=== PATIENT | female | born 1940 | race Caucasian/White ===

== ENCOUNTER 2016-12-05 09:35 | Emergency (ER) | payer MEDICARE, MEDICAID ==
[~2016-12-05] VITALS: Ht 154.9 cm; Wt 72.7 kg
[~2016-12-05 09:35] MED LIST: ASPI81TA3 PO; CALC-771 PO; FISH1CAP15 PO; GINK30CA PO; GLUC-125 PO; LISI1TAB3 PO; LOP600 PO; MELA1TAB21 PO; MULT-892 PO; UBID1CAP52 PO
[2016-12-05 09:39] VITALS: BP 171/71; PULSE 59; RESP 10; O2SAT 99
--- NOTE | 2016-12-05 09:47 | ED.REPORT ---
HPI-Trauma Minor / Fall Date of Service Dec 05, 2016 ED Provider: Papa Sahni MD The patient is a 76 year old female with history of vascular dementia, who was brought to the emergency department by her grandson for a recent head injury. The patient fell 2 days ago while getting out of bed and hit the left side of her face and head. She does not believe she lost consciousness. She denies chest pain, shortness of breath, palpitations or dizziness. She denies any other injuries. Since the fall she has been more tired and appears to be weak and shaky. At this time she complains of very mild head pain that is worse if she touches it. She denies difficulty speaking, difficulty swallowing, visual changes, numbness, focal weakness or vomiting. She takes 81 mg aspirin daily. Nursing Notes Stated Complaint: FALL Chief Complaint: Multiple Trauma/Fall Nursing Notes Reviewed: Yes Allergies: Coded Allergies: amlodipine (Verified Adverse Reaction, Intermediate, 07/31/12) severe, debilitating joint pain atenolol (Verified Adverse Reaction, Intermediate, 07/31/12) when she stopped atenolol, her asthma sx and SOB went away, as did her dx of CHF lorazepam (Verified Adverse Reaction, Intermediate, HYPOTENSION, 07/31/12) Scheduled Aspirin-Expunged Drug, Do Not Renew! (Aspirin-Expunged Drug, Do Not Renew!) 81 Mg Tab.chew 81 MG PO DAILY Calcium Carbonate/Mag Oxide/Zn (Uukgnuc-Qaunxiuha-Olkn Caplet) 1 Each Tablet 1, 200 MG PO DAILY Fish Oil/Dha/Epa-Expunged Drug, Do Not Renew! (Fish Oil 1,200 Mg-Expunged Drug, Do Not Renew) 1 Each Capsule 1 EACH PO DAILY Gemfibrozil-Expunged Drug, Do Not Renew! (Lopid-Expunged Drug, Do Not Renew!) 600 Mg Tablet 300 MG PO BID Ginkgo Biloba-Expunged Drug, Do Not Renew! (Ginkgo Biloba-Expunged Drug, Do Not Renew!) 30 Mg Capsule 60 MG PO DAILY Gluc/Reed-Msm#3/Jesse/Bosw/Bor (Glucosamine Chondroitin Sftgl) 1 Each Capsule 1 EACH PO DAILY Lisin/HCTZ-Expunged, Do Not Renew! (Lisin/HCTZ 10/12.5-Expunged, Do Not Renew!) 1 Tab Tablet 1 TAB PO DAILY MELATONIN/PYRIDOXINE-Expunged Drug, Do Not Re (MELATONIN-Expunged Drug, Do Not Renew!) 1 Each Tab.mphase 1 EACH PO HS Multivitamin (Daily Value) 1 Each Tablet 1 EACH PO DAILY Ubidecarenone/Vit E Acetate (Co Q-10 100 Mg Softgel) 1 Each Capsule 2 EACH PO DAILY General Time Seen by MD: 09:39 Chief Complaint Fall, Head injury Hx Obtained From: Patient, Other family... (Grandson) Arrived By: Walk-in Onset Occurred: 2 days ago Symptom Duration: Since onset Caused by: Fall on ground Context: Occurred at: Home injury Location: Face Head Quality: Painful Severity: Current: Mild Severity: Maximum: Moderate Recent Healthcare: No recent doctor visit, No recent hospitalization Similar Sx Previous: No Past Medical History Past Medical History Vascular dementia Family History Noncontributory Social History Lives with her grandson Other Social History: Good social support, Local resident Ambulatory Status Independent Review of Systems Constitutional: Reports: Fatigue, Weakness - generalized Respiratory: Denies: Shortness of breath Neurologic: Reports: Headache, Shaking, Weakness, Denies: Dizziness, Focal weakness, Numbness, Slurred speech, Syncope, Unable to speak, Vision change Complete sys rev & neg: except as marked. Cardiovascular: Denies: Chest pain, Palpitations GI: Denies: Vomiting Physical Exam Initial Vital Signs Vital Signs (First) Date Time Temp Pulse Resp B/P Pulse Ox O2 Delivery O2 Flow Rate FiO2 12/05/16 09:39 36.9 59 10 171/71 99 Room Air Initial VS: Reviewed Respiratory: Breath sounds normal, Clear to auscultation, No respiratory distress Cardiovascular: Regular rate & rhythm, Heart sounds normal, Intact distal pulses Abdomen / GI: Soft, Non-tender, No guarding, No rebound, No distention Lymphatic: No lymphadenopathy Extremities: Vascular intact, Neuro intact, No swelling, No tenderness Skin: Warm, Dry, No cyanosis Psychiatric: Mood/affect normal, Behavior normal, Normal thought content General/Constitutional: Awake, Alert, No acute distress, Cooperative Neck: Atraumatic, Supple, Full range of motion, No swelling, Non-tender, No midline vertebral tend Head / Eyes: Normocephalic, PERRL, EOMI Contusion over her left forehead. No Pineda's sign. ENT: Atraumatic, Airway patent, Mucous membranes moist, Tympanic membs NL Trauma - ENT Specific: Negative: Hemotympanum L, Hemotympanum R Neurologic: Oriented X3, Speech NL, No motor deficits, No sensory deficits, CN II - XII intact, Cerebellar NL Interpretation & Diagnostics CT Head Interpretation IMPRESSION: 1. No CT evidence of acute intracranial pathology. 2. Previously noted mastoid fluid has resolved. Dictated by: Donald Lilly M.D. on 12/05/2016 at 11:02 Study: Head CT no contrast Interpretation / Wet Read by: Interpret - Radiologist Re-Eval/Medical Decision Med Decision/Clinical Course 76-year-old female not on anticoagulation visiting 2 days status post golf fall complaining of weakness and decreased level of consciousness per grandson. No focal neuro deficits. CT head no acute pathology. Likely concussion. Discharged with return precautions. Return precautions given. Re-Evaluation/Progress #1: Time of Eval: 09:55 Re-Evaluation/Progress Note: Discussed plan for head CT. Re-Evaluation/Progress #2: Time of Eval: 11:16 Re-Evaluation/Progress Note: Rechecked the patient. Discussed results, diagnosis, and plan for discharge. All questions were addressed. Counseled Regarding: Diagnosis, Need for follow-up, When/why to return to ED Discharge & Departure Impression: Primary Impression: Fall Encounter type: initial encounter Qualified Code: W19.XXXA - Unspecified fall, initial encounter Additional Impression: Head injury Encounter type: initial encounter Qualified Code: S09.90XA - Unspecified injury of head, initial encounter Disposition: Home Discharge Condition All VS Reviewed: Yes Condition: Stable Patient Instructions: Fall Prevention for Older Adults (ED), Head Injury (ED) Additional Instructions: Thank you for entrusting us with your care today. Your head CT today is reassuring. There are no signs of any fractures or bleeding. It would not be a normal if you experience a mild headache, ringing in your ears , dizziness, lightheadedness, blurred vision, and/or slightly increased agitation. As long as you fell well you can do any of your normal activities. Followup with your regular doctor next week for re-evaluation. Return to the emergency department for increased pain, vomiting, visual changes , numbness, weakness, speech changes, or any other new or concerning symptoms. Referrals: Sindi Matias (PCP) Scribe Attestation Portions of this note were transcribed by Ayla Nelson. I, Dr. Sahni personally performed the history, physical exam and medical decision-making; I reviewed and confirmed the accuracy of the information in the transcribed note. Signed by: Edi Herzog, 12/05/2016 at 1130. copies to: Sindi Matias Ben M MD Dec 05, 2016 09:47 Ayla Nelson Dec 05, 2016 09:54
--- NOTE | 2016-12-05 11:07 | DRSVH ---
PROCEDURE: CT BRAIN WITHOUT CONTRAST ([id number]) INDICATIONS: head trauma TECHNIQUE: Noncontrast 4.5 mm thick angled axial sections acquired from the foramen magnum to the vertex, with c oronal reformats. COMPARISON: [facility], brain MRI from 09/24/2016 FINDINGS: Image quality: Excellent. CSF spaces: Basal cisterns are patent. No extra-axial fluid collections. Ventricles are normal in size and shape. Brain: No midline shift. No intracranial masses or hemorrhage. Ball-white matter interface is norm al. Low-density in the subcortical and periventricular matter consistent with chronic benign ischemi c change. Skull and face: Calvarium and visualized facial bones are intact, without suspicious lesions. Sinuses: Visualized sinuses and mastoids are clear. IMPRESSION: 1. No CT evidence of acute intracranial pathology. 2. Previously noted mastoid fluid has resolved. Dictated by: Donald Lilly M.D. on 12/05/2016 at 11:02 Approved by: Donald Lilly M.D. on 12/05/2016 at 11:05
[2016-12-05 11:54] VITALS: BP 152/73; PULSE 51; RESP 17; O2SAT 95
== END 2016-12-05 11:55 | disposition home or self-care (01) ==
LOC: SED 09:35
DX: S00.83XA Contusion of other part of head, initial encounter (principal); W06.XXXA Fall from bed, initial encounter; Y93.89 Activity, other specified; Y99.8 Other external cause status; Y92.013 Bedroom of single-family (private) house as the place of occurrence of the external cause; F01.50 Vascular dementia, unspecified severity, without behavioral disturbance, psychotic disturbance, mood disturbance, and anxiety; R53.83 Other fatigue; R53.1 Weakness; Z79.82 Long term (current) use of aspirin; Z88.8 Allergy status to other drugs, medicaments and biological substances

== ENCOUNTER 2016-12-18 14:44 | Observation (INO) | payer MEDICARE, MEDICAID ==
[2016-12-18] VITALS (7 sets, daily range): BP systolic 123–155; BP diastolic 58–75; PULSE 57–69; RESP 13–17; O2SAT 94–99
[~2016-12-18] VITALS: Ht 157.5 cm; Wt 76.3 kg
[2016-12-18] MEDS ORDERED: VENL75CA95 PO (14:55)
[2016-12-18] MEDS ORDERED: DONE5TAB30 PO (14:55)
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
[2016-12-18 15:20] LABS: BASOPHILS % (AUTO) 1.1 % (0-3); EOSINOPHILS % (AUTO) 1.9 % (0-5); MONOCYTES % (AUTO) 8.9 % (4-12); Mean Corpuscular Volume 90.5 fL (81-100); NEUTROPHILS % (AUTO) 50.8 % (40-74); Platelet Count 252 bil/L (150-400)
--- NOTE | 2016-12-18 15:27 | DRSVH ---
PROCEDURE: X-RAY CHEST ONE VIEW, PORTABLE ([id number]) INDICATIONS: cp TECHNIQUE: One view of the chest was acquired. COMPARISON: 12/15/2013 FINDINGS: Surgical changes and devices: Surgical clips right upper quadrant.. Lungs and pleura: No pleural effusions or pneumothorax. Lungs are clear. Mediastinum: Mediastinal contours appear normal. Heart size is normal. Bones and chest wall: No suspicious bony lesions. Overlying soft tissues appear unremarkable. IMPRESSION: No acute cardiopulmonary abnormality Dictated by: Maximo Dang M.D. on 12/18/2016 at 15:25 Approved by: Maximo Dang M.D. on 12/18/2016 at 15:25
[2016-12-18 15:40] LABS: TROPONIN T < 0.010 ug/L (0.0-0.011)
[2016-12-18 15:48] LABS: Magnesium 1.8 mg/dL (1.6-2.6)
[2016-12-18] MEDS ORDERED: Alum-Mag Hydrox-Simeth 30 mL Suspension PO PRN ×2 (17:05→17:15)
[2016-12-18] MEDS ORDERED: Ondansetron 2 mg/mL 2 mL Inj IVPUSH PRN ×2 (17:05→17:15)
[2016-12-18] MEDS ORDERED: Senna-Docusate 8.6-50 mg Tablet PO PRN (17:15)
[2016-12-18] MEDS ORDERED: Polyethylene Glycol (PEG) 17 Gm Powder PO PRN (17:15)
[2016-12-18 17:52] LABS: APPEARANCE,URINE HAZY (CLEAR,HAZY); COLOR,URINE STRAW (YELLOW); OCCULT BLOOD,URINE TRACE (NEGATIVE); PH,URINE 5.5 (5.0-8.0); UROBILINOGEN,URINE NORMAL (NORMAL)
[2016-12-18 18:20] LABS: Creatine Kinase 72 U/L (21-215)
[2016-12-18] MEDS: 0.9% Sodium Chloride 1,000 ML IV SCH (18:54)
[2016-12-18] MEDS ORDERED: ASPI-973 PO (21:32)
[2016-12-18] MEDS ORDERED: LISI10TA PO (21:33)
[2016-12-18] MEDS ORDERED: GINK60CA13 PO (21:38)
[2016-12-18] MEDS ORDERED: LORA10CA9 PO (21:38)
[2016-12-18] MEDS ORDERED: UBID100C25 PO (21:38)
[2016-12-18] MEDS ORDERED: OMEG500C PO (21:38)
[2016-12-18] MEDS ORDERED: GLUC500T12 PO (21:38)
[2016-12-18] MEDS ORDERED: MULT1CAP33 PO (21:38)
[2016-12-18] MEDS ORDERED: CALC-752 PO (21:38)
[2016-12-18] MEDS ORDERED: CHON250C PO (21:39)
[2016-12-18] MEDS ORDERED: cefTRIAXone Inj 2,000 MG in Dextrose 5% Minibag Plus 50 ML IV SCH (22:00)
--- NOTE | 2016-12-18 22:00 | NUR ---
Admit Pt admitted from Ed to [facility] room 1005 at approx. 1800 report received from Shasta Hunt RN. Pt alert and oriented x 4, was able to transfer self to bedside chair. Denies pain and discomfort, able to make needs known, oriented to room, call light, and bathroom.
--- NOTE | 2016-12-18 22:06 | PCM.HPMED ---
Subjective Date of Service Dec 18, 2016 Primary Provider: Admitting Physician: Ernesto Mittal MD Primary Care Physician: Sindi Matias Attending Physician: Ernesto Mittal MD Chief Complaint: Chest pain History of Present Illness: Raeann Arnett is a 76 year old woman with past medical history significant for coronary artery disease status post PCI, hypertension, hyperlipidemia, chronic left bundle branch block, and depression as well as vascular dementia who presented to the [facility] emergency department department today from physical therapy due to onset of chest pain and dizziness during exercise. Patient was at her appointment and was exercising for 10 minutes and began to feel dizzy and have chest pressure. She felt like she was going to lose consciousness. She stopped exercise and still felt chest pressure for about 15 minutes. She also noted shortness of breath, nausea, left shoulder pain, headache. The physical therapist thought that the patient was having a heart attack and she evaluated in the emergency department. She herself does have some difficulty with memory and does not remember the events in perfect detail. The patient is normally quite active and looks forward to physical therapy. Patient does state that she has a lot of aches and pains and she usually snores and attributes them to her age. She does not remember her symptoms during her previous heart attack. In the emergency department and her vital signs were stable and only notable for a blood pressure of 154/69 and a pulse of 57. She was given a full dose of aspirin. EKG with LBBB unchanged from prior EKG. Troponin negative. Chest x- ray unremarkable. Admission requested for chest pain workup Review of Systems: A comprehensive review of systems was performed and is negative except as noted above in the history of present illness. Allergies Coded Allergies: amlodipine (Verified Adverse Reaction, Intermediate, 12/18/16) severe, debilitating joint pain atenolol (Verified Adverse Reaction, Intermediate, 12/18/16) when she stopped atenolol, her asthma sx and SOB went away, as did her dx of CHF lorazepam (Verified Adverse Reaction, Intermediate, HYPOTENSION, 12/18/16) Home Medications Raeann Parker. [id number] 1940 12/18/2016 01:45 PM 06/12 Start Date Medication Directions Stop Date Aspir-81 81 mg tablet,delayed release take 1 tablet by oral route every day 08/01/2009 Cuyslql-Hhwdtmkev-Yxtk 3 tablets by mouth daily 07/25/2009 Claritin 10 mg Tab take 1 tablet (10MG) by ORAL route every day 09/09/2013 Co Q-10 100 mg capsule Take once daily 11/24/2016 donepezil 5 mg tablet take 1 tablet by oral route every day at bedtime 09/21/2009 Fish Oil 1,000 mg Cap take 1 daily 04/28/2016 gemfibrozil 600 mg tablet take 0.5 tablet by oral route 2 times every day 30 minutes before morning and evening meal 01/08/2012 Glucosamine-Chondroitin 1 tablets by mouth 2 times daily 10/01/2016 lisinopril 10 mg tablet take 1 tablet by oral route every day 11/27/2011 multivitamin Cap take 1 capsule by oral route every day 01/08/2012 Darragh-3 1 tablets by mouth 2 times daily PMH Vascular dementia Fibromyalgia History of recurrent urinary tract infections Anxiety History of asbestosis Chronic left bundle branch block (noted on EKG from 2003) Asthma Coronary artery disease Hyperlipidemia Hypertension Depression Surgical History Cardiac catheterization with stenting of the LAD. 2003 Cholecystectomy Cataract surgery Family History Father at 62 of emphysema. Mother at 72 in a car accident. She had a history of hypertension and diabetes. Social History Hx Alcohol Use: No Hx Substance Use: No Hx Tobacco Use: No Smoking Status: Never Smoker Exam Vital Signs Vital Sign - Last Date Time Temp Pulse Resp B/P Pulse Ox O2 Delivery O2 Flow Rate FiO2 12/18/16 18:04 36.5 58 16 155/75 96 Room Air Exam General: No acute distress, well-developed, well-nourished, appropriately interactive HEENT: Normocephalic, atraumatic. External ears without defect. Pupils equal, round, and reactive to light and accommodation. Anicteric sclerae, moist conjunctivae, and no lid lag. Oropharynx free of erythema and cobble stoning with moist mucosa. Neck: Supple with full range of motion. No jugular venous distension. No bruits. No lymphadenopathy or thyromegaly. Cardiovascular: Regular rate and rhythm with no murmurs, rubs, or gallops appreciated Pulmonary: Clear to auscultation bilaterally with no crackles, wheezes, or rhonchi. Normal respiratory effort with no use of accessory muscles. Abdomen: Bowel tones present. Obese. Soft, nontender, nondistended. No hepatosplenomegaly or masses appreciated. Extremities: No clubbing, cyanosis, edema, or lymphadenopathy appreciated. Skin: Normal temperature, turgor, and texture; no rash, ulcers, or subcutaneous nodules appreciated. Neurological: Cranial nerves grossly intact. Normal muscle strength, tone, and bulk. Reflexes, coordination, and sensory function within normal limits. No known gait impairment. Psychiatric: Normal mood and affect. Alert and oriented to person, place, and time. Lab and Diagnostics Result Diagram: 12/18/16 1505 12/18/16 1505 X-Rays, CTs and MRIs X-RAY CHEST ONE VIEW, PORTABLE IMPRESSION: No acute cardiopulmonary abnormality Dictated by: Maximo Dang M.D. on 12/18/2016 at 15:25 12-lead ECG Normal sinus rhythm, left bundle-branch block, left axis deviation. Also reviewed EKG from 2003 which showed a left bundle branch block at that time. Cardiac Echo Impressions Interpretation Summary Normal sinus rhythm. Normal LV size, and wall thickness. There is subtle septal hypokinesis which could be due LBBB; there is also subtle distal anterior hypokinesis. Stage I diastolic dysfunction. EF is mildly reduced, estimated at 45-50%. No significant valvular abnormlaities. 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 Compared to prior study LV systolic function and focal wall motion abnormalities are unchanged. No significant changes have occurred. Assessment & Plan Raeann Arnett is a 76 year old woman with past medical history significant for coronary artery disease status post PCI, hypertension, hyperlipidemia, chronic left bundle branch block, and depression as well as vascular dementia who presented to the [facility] emergency department department today from physical therapy due to onset of chest pain and dizziness during exercise. #Chest pain, present on admission, active -ACS unlikely but Given patient's past history of CAD her chest pressure on exertion need to rulout -First troponin negative, EKG LBBB without change from previous EKGs -Continue ASA, gemfibrozil, lisinopril -baseline HR in 50's without beta seth -ECHO -MIBI stress test tomorrow -Thee troponin # Near syncope -Probably due to dehydration due to UTI #UTI, present on admission, active -Ceftriaxone Chronic issues, stable, present on admission #Hypertension -Continue lisinopril #History of CAD s/p stent -Continue aspirin -Patient multiple beta seth or statin. HR laine .no need for BB . Will clarify if any contraindication for statin #Dementia -Continue Donepezil CODE STATUS: DNR/DNI Patient is admitted under observation status with anticipated length of stay <2 midnights due to severity of symptoms. VTE Prophylaxis: Sub-Q Heparin (Unfractionated) Resuscitation Status: DNR/DNI:Do Not Resuscitate/Intubate copies to: Sindi Matias Viktoriya DO Dec 18, 2016 18:21 Ernesto Mittal MD Dec 19, 2016 07:12
[2016-12-18] MEDS: Sodium Chloride LOK Flush 10 mL Syringe IVFLUSH SCH (23:36)
[2016-12-18] MEDS: Heparin 5,000 Unit/mL Inj SUBQ SCH (23:37)
[2016-12-19 00:03] VITALS: BP 145/72; PULSE 59; RESP 18; O2SAT 95
[2016-12-19 00:35] LABS: Creatine Kinase 59 U/L (21-215)
--- NOTE | 2016-12-19 03:05 | NUR ---
Assumed Care/ Med Rec Assumed patient care at 0. Patient is A&OX3, pleasant and sitting in her chair visiting with family. Denies any pain, CP or SOB. Tele reports SB 57 W/ IVCD. RN states that med rec was done, but had not been done correctly. Admit nurse notified, and was able to complete med rec. However, patient later on states that she takes her Donepezil in the evening, but it has been scheduled for 0830. Night hospitalist notified of this, but the order has not been changed at this time. Will continue to monitor and continue Q1 hour checks.
[2016-12-19 03:54] VITALS: PULSE 50
[2016-12-19 05:01] VITALS: BP 174/73; PULSE 57; RESP 17; O2SAT 100
[2016-12-19] MEDS: 0.9% Sodium Chloride 1,000 ML IV SCH (05:44)
[2016-12-19 05:53] LABS: BASOPHILS % (AUTO) 1.3 % (0-3); EOSINOPHILS % (AUTO) 1.9 % (0-5); MONOCYTES % (AUTO) 9.6 % (4-12); Mean Corpuscular Hemoglobin 30.3 pg (27.0-35.0); Mean Corpuscular Volume 90.5 fL (81-100); NEUTROPHILS % (AUTO) 43.3 % (40-74); Platelet Count 240 bil/L (150-400)
[2016-12-19 08:00] VITALS: PULSE 78
[2016-12-19] MEDS ORDERED: Venlafaxine XR 75 mg ER24 Capsule PO SCH (08:30)
[2016-12-19] MEDS: Heparin 5,000 Unit/mL Inj SUBQ SCH (10:29)
[2016-12-19] MEDS: Sodium Chloride LOK Flush 10 mL Syringe IVFLUSH SCH (10:30)
--- NOTE | 2016-12-19 11:47 | DRSVH ---
PROCEDURE: 1 DAY PHARMACOLOGICAL STRESS TEST Rest and pharmacological stress myocardial perfusion SPECT with gated imaging and ejection fraction RADIOPHARMACEUTICAL: 8.66 mCi Tc-99m tetrafosmin IV at rest and 24.2 mCi Tc-99m tetrafosmin IV at pea k effect of pharmacological stress. A uhb-rij-hplaalhe was performed. INDICATIONS: CHEST PAIN. TECHNIQUE: Radiopharmaceutical was injected at peak stress test, and also at rest. SPECT images wer e obtained. SPECT myocardial perfusion images were displayed in short axis, horizontal long axis, an d vertical long axis views. Gated images were reviewed using [employer] software. COMPARISON: None. CARDIAC STRESS: A pharmacologic stress test was performed under the supervision of an attending staff, using an infus ion of Lexiscan 0.4 mg. Hemodynamic data: There is normal blood pressure and heart rate response to pharmacologic stress. Symptoms: The patient denied anginal chest pain. Aminophylline: 100 mg EKG: No diagnostic changes of ischemia; rare PVC. FINDINGS: Raw data: There is good myocardial uptake of radiotracer. No significant motion artifacts. Left ventricle function: Gated images demonstrate normal left ventricular wall thickening. No segme ntal wall motion abnormalities. No transient ischemic dilation. Left ventricle resting end diastoli c volume is 96 mL. Left ventricle stress ejection fraction is 63%; normal range is above 45%. Myocardial perfusion: Small, fixed apical perfusion defect. There is also a possible subtle distal, i nferolateral fixed perfusion defect. Soft tissue attenuation affects the inferior myocardium IMPRESSION: Fixed perfusion defect involving the apex and distal inferolateral segment likely related to apical t hinning, and possible small distal inferolateral infarct. No reversible perfusion defects identified to suggest ischemia. Normal left ventricle stress ejection fraction. PQRS ATTESTATIONS: Measure 322 - Is this imaging test primarily performed on a low-risk surgery patient for preoperative evaluation within 30 days preceding their low-risk non-cardiac surgery? Low-risk surgery is defined as cardiac or myocardial infarction less than 1%, including (but not limited to) endoscopic pr ocedures, superficial procedures, cataract surgery, and excisional breast surgery: Answer: No Measure 323 - Is this imaging test performed primarily for the monitoring of an asymptomatic patient who had percutaneous coronary intervention on the visit date or within 2 years of the visit date? An swer: No Measure 324 - Is this imaging test performed primarily for the initial detection and risk assessment on an asymptomatic, low coronary heart disease patient? Low CHD risk definition = clinicians should consider the maximum number of available patient factors used to estimate risk based on [place] (A TP III criteria), typically age, gender, diabetes, smoking status, and use of blood pressure medicati on, and integrate age appropriate estimates for missing elements, such as LDL or standard blood press ure. Answer: No Dictated by: Kenn Carrera M.D. on 12/19/2016 at 11:32 Approved by: Kenn Carrera M.D. on 12/19/2016 at 11:45
--- NOTE | 2016-12-19 13:50 | NUR ---
MICHAEL explained and signed. Copy of MICHAEL and Medicare self administered medication information given to pt.
--- NOTE | 2016-12-19 14:02 | NUR ---
Social Work: Attempted Initial Assessment/Multi-Disciplinary Rounds SW attempted to meet pt at bedside to conduct initial assessment. Pt was not available. Per MD in rounds, MD does not anticipate any SW discharge needs and is likely to discharge home today after ECHO and stress test. SW will attempt to assess pt again when available. KHURRAM Bauer
--- NOTE | 2016-12-19 14:38 | NUR ---
activity pt has been up and about in room frequently, having no symptoms whatsoever, NO CP/SOB/nausea. Stress test completed this am. VSS
[2016-12-19] MEDS ORDERED: cefTRIAXone Inj 2,000 MG in Dextrose 5% Minibag Plus 50 ML IV SCH (15:00)
--- NOTE | 2016-12-19 16:01 | PCM.DIMED ---
Discharge Instructions Date of Service Dec 19, 2016 Dates of Hospitalization Dec 18, 2016 at 17:18 Discharge Diagnosis Discharge Diagnosis #Chest pain, present on admission, resolved -ACS ruled out #Initially suspected UTI, present on admission, ruled out. Probably contaminant Chronic issues, stable, present on admission #Hypertension #History of CAD s/p stent #Dementia Diet Discharge Diet: Low fat, Low Sodium, Heart Healthy Activity Discharge Activity: Limited until seen by PCP Call your provider Call your provider for: Fever or Chills, Shortness of breath, Bleeding, Chest pain, Vomitting, Excessive diarrhea, Weakness (unilateral) Patient Instructions Patient Instructions You were hospitalized due to chest pain. EKG, cardiac enzymes and stress test negative for heart attack. Please follow-up with PCP in 1 week. Please come back to emergency room if you have any further chest pain. Follow-up Provider: Sindi Matias Follow-up with PCP in: 1 week Ernesto Mittal MD Dec 19, 2016 16:01
--- NOTE | 2016-12-19 16:09 | PCM.DC.MED ---
Discharge Summary Date of Service Dec 19, 2016 Dates of Hospitalization Date of Hospital Admission Dec 18, 2016 at 17:18 Date of Discharge: Dec 19, 2016 Providers: Admitting Physician: Ernesto Mittal MD Primary Care Physician: Sindi Matias Attending Physician: Ernesto Mittal MD Diagnosis at Time of Discharge Diagnosis at Time of Discharge #Chest pain, present on admission, resolved -ACS ruled out #Initially suspected UTI, present on admission, ruled out. Probably contaminant Chronic issues, stable, present on admission #Hypertension #History of CAD s/p stent #Dementia Procedures XRay, CTs & MRIs X-RAY CHEST ONE VIEW, PORTABLE IMPRESSION: No acute cardiopulmonary abnormality Dictated by: Maximo Dang M.D. on 12/18/2016 at 15:25 ECG 12 Lead Normal sinus rhythm, left bundle-branch block, left axis deviation. Also reviewed EKG from 2003 which showed a left bundle branch block at that time. Cardiac Echo Impression Interpretation Summary Normal sinus rhythm. Normal LV size, and wall thickness. There is subtle septal hypokinesis which could be due LBBB; there is also subtle distal anterior hypokinesis. Stage I diastolic dysfunction. EF is mildly reduced, estimated at 45-50%. No significant valvular abnormlaities. 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 Compared to prior study LV systolic function and focal wall motion abnormalities are unchanged. No significant changes have occurred. echo 12/19/16 Interpretation Summary The left ventricle is normal in size. Left ventricular systolic function is mildly reduced. The ejection fraction is estimated to be 45-50%. Septal motion is consistent with conduction abnormality. There is mild global hypokinesis of the left ventricle. LVEF has not changed since prior study. The right ventricle is normal in size and function. Pulmonary artery pressures cannot be estimated because of the lack of a measurable TR jet velocity. The left atrium is moderately dilated. Right atrial size is normal. There is no significant valvular heart disease. The aortic root is normal size. Other Diagnostics PROCEDURE: 1 DAY PHARMACOLOGICAL STRESS TEST Rest and pharmacological stress myocardial perfusion SPECT with gated imaging and ejection fraction RADIOPHARMACEUTICAL: 8.66 mCi Tc-99m tetrafosmin IV at rest and 24.2 mCi Tc-99m tetrafosmin IV at peak effect of pharmacological stress. A [id number]-[id number] was performed. INDICATIONS: CHEST PAIN. IMPRESSION: Fixed perfusion defect involving the apex and distal inferolateral segment likely related to apical thinning, and possible small distal inferolateral infarct. No reversible perfusion defects identified to suggest ischemia. Normal left ventricle stress ejection fraction. Brief History per HPI Raeann Arnett is a 76 year old woman with past medical history significant for coronary artery disease status post PCI, hypertension, hyperlipidemia, chronic left bundle branch block, and depression as well as vascular dementia who presented to the [facility] emergency department department today from physical therapy due to onset of chest pain and dizziness during exercise. Patient was at her appointment and was exercising for 10 minutes and began to feel dizzy and have chest pressure. She felt like she was going to lose consciousness. She stopped exercise and still felt chest pressure for about 15 minutes. She also noted shortness of breath, nausea, left shoulder pain, headache. The physical therapist thought that the patient was having a heart attack and she evaluated in the emergency department. She herself does have some difficulty with memory and does not remember the events in perfect detail. The patient is normally quite active and looks forward to physical therapy. Patient does state that she has a lot of aches and pains and she usually snores and attributes them to her age. She does not remember her symptoms during her previous heart attack. In the emergency department and her vital signs were stable and only notable for a blood pressure of 154/69 and a pulse of 57. She was given a full dose of aspirin. EKG with LBBB unchanged from prior EKG. Troponin negative. Chest x- ray unremarkable. Admission requested for chest pain workup Hospital Course Raeann Arnett is a 76 year old woman with past medical history significant for coronary artery disease status post PCI, hypertension, hyperlipidemia, chronic left bundle branch block, and depression as well as vascular dementia who presented to the [facility] emergency department department today from physical therapy due to onset of chest pain and dizziness during exercise. #Chest pain, present on admission, active -ACS unlikely - troponin negative x2 , EKG LBBB without change from previous EKGs -Continue ASA, gemfibrozil, lisinopril -Patient not on statin due to significant side effects. Only tolerated it for a year following to stent -baseline HR in 50's without beta seth -ECHO unchanged from prio EF 40-45% -MIBI stress test no reversible ischemia #UTI, present on admission, active -Gave 2 doses of Ceftriaxone -Urine culture contaminated. Discontinue antibiotic upon discharge Chronic issues, stable, present on admission # chronic systolic CHF,not in exacerbation #Hypertension -Continue lisinopril #History of CAD s/p stent -Continue aspirin -Patientnot on beta seth or statin. HR laine .no need for BB . statin Discontinued due to significant side effects #Dementia -Continue Donepezil CODE STATUS: DNR/DNI Disposition: Discharged home Condition on discharge stable Exam Vital Signs (Last) Date Time Temp Pulse Resp B/P Pulse Ox O2 Delivery O2 Flow Rate FiO2 12/19/16 08:00 78 12/19/16 05:01 36.8 17 174/73 100 Nasal Cannula 2.00 Exam General: No acute distress, well-developed, well-nourished, appropriately interactive HEENT: Normocephalic, atraumatic. External ears without defect. Pupils equal, round, and reactive to light and accommodation. Anicteric sclerae, moist conjunctivae, and no lid lag. Oropharynx free of erythema and cobble stoning with moist mucosa. Neck: Supple with full range of motion. No jugular venous distension. No bruits. No lymphadenopathy or thyromegaly. Cardiovascular: Regular rate and rhythm with no murmurs, rubs, or gallops appreciated Pulmonary: Clear to auscultation bilaterally with no crackles, wheezes, or rhonchi. Normal respiratory effort with no use of accessory muscles. Abdomen: Bowel tones present. Obese. Soft, nontender, nondistended. No hepatosplenomegaly or masses appreciated. Extremities: No clubbing, cyanosis, edema, or lymphadenopathy appreciated. Skin: Normal temperature, turgor, and texture; no rash, ulcers, or subcutaneous nodules appreciated. Neurological: Cranial nerves grossly intact. Normal muscle strength, tone, and bulk. Reflexes, coordination, and sensory function within normal limits. No known gait impairment. Psychiatric: Normal mood and affect. Alert and oriented to person, place, and time. Test 12/18/16 15:05 12/18/16 17:28 12/18/16 23:52 12/19/16 04:47 Hemoglobin A1c 5.5% (4.8-5.6) Magnesium Level 1.8mg/dL (1.6-2.6) Total Bilirubin 0.3mg/dL (0.0-1.2) Aspartate Amino Transf (AST/SGOT) 23U/L (0-50) Alanine Aminotransferase (ALT/SGPT) 13U/L (0-32) Alkaline Phosphatase 57U/L (25-165) Total Protein 8.4g/dL (6.4-8.4) Albumin 3.9g/dL (3.4-5.0) Thyroid Stimulating Hormone (TSH) 0.536uIU/mL (0.450-4.500) Urine Color Straw (YELLOW) Urine Appearance Hazy (CLEAR,HAZY) Urine pH 5.5 (5.0-8.0) Urine Specific [place] 1.015 (1.003-1.035) Urine Protein 30mg/dL (NEG,TRACE) Urine Glucose (UA) Negativemg/dL (NEGATIVE) Urine Ketones Negativemg/dL (NEGATIVE) Urine Occult Blood Trace (NEGATIVE) Urine Nitrite Negative (NEGATIVE) Urine Bilirubin Negative (NEGATIVE) Urine Urobilinogen Normalmg/dL (NORMAL) Urine Leukocyte Esterase Moderate (NEGATIVE) Urine RBC 3-10/hpf (0-2) Urine WBC 11-50/hpf (0-5) Urine Epithelial Cells Moderate/hpf (NONE-MOD) Urine Crystals None seen (NONE SEEN) Urine Bacteria Moderate/hpf (NONE-FEW) Urine Hyaline Casts None/lpf (NONE) Urine Granular Casts None seen (NONE SEEN) Urine Waxy Casts None seen (NONE SEEN) Urine Red Blood Cell Casts None seen (NONE SEEN) Urine White Blood Cell Casts None seen (NONE SEEN) Urine Mucus None seen (None Seen) Urine Trichomonas None seen (NONE SEEN) Urine Yeast None (NONE SEEN) Urinalysis Comment None Urine Culture Reflexed Indicated Total Creatine Kinase 59U/L (21-215) Creatine Kinase MB 1.8ng/mL (0.0-5.3) Creatine Kinase MB % % (0.0-5.0) Troponin T 0.010ug/L (0.0-0.011) White Blood Count 3.8th/mm3 (3.8-10.1) Red Blood Count 3.89mil/mm3 (3.90-5.20) Hemoglobin 11.8g/dL (12.0-15.6) Hematocrit 35.2% (35.0-46.0) Mean Corpuscular Volume 90.5fL (81-100) Mean Corpuscular Hemoglobin 30.3pg (27.0-35.0) Mean Corpuscular Hemoglobin Concent 33.5% (32.0-37.0) Red Cell Distribution Width 12.9% (12.3-15.4) Platelet Count 240bil/L (150-400) Neutrophils (%) (Auto) 43.3% (40-74) Lymphocytes (%) (Auto) 43.9% (14-46) Monocytes (%) (Auto) 9.6% (4-12) Eosinophils (%) (Auto) 1.9% (0-5) Basophils (%) (Auto) 1.3% (0-3) Sodium Level 144mEq/L (134-144) Potassium Level 4.3mEq/L (3.5-5.2) Chloride Level 107mEq/L (97-108) Carbon Dioxide Level 27mmol/L (18-29) Blood Urea Nitrogen 14mg/dL (8-27) Creatinine 0.85mg/dL (0.57-1.00) Estimat Glomerular Filtration Rate 94mL/min (>59) Glucose Level 93mg/dL (60-99) Calcium Level 9.4mg/dL (8.5-10.1) Triglycerides Level 83mg/dL (0-149) Cholesterol Level 193mg/dL (100-199) LDL Cholesterol, Calculated 90.400mg/dL (0-99) VLDL Cholesterol 16.600mg/dL HDL Cholesterol 86mg/dL (>39) Cholesterol/HDL Ratio 2.24 (0.0-4.4) Discharge Medications Discharge Medications Aspirin (Aspirin) 81 Mg Tablet 81 MG PO DAILY (Reported) Chondroitin Sulfate A (Chondroitin Sulfate) 250 Mg Capsule 1,500 MG PO DAILY ( Reported) Donepezil (Donepezil) 5 Mg Tablet 5 MG PO DAILY (Reported) Ginkgo Biloba Baudette Extract (Ginkgo Biloba) 30 Mg Capsule 60 MG PO DAILY ( Reported) Glucosamine (Glucosamine) 500 Mg Tablet 500 MG PO BID (Reported) Lisinopril (Lisinopril) 10 Mg Tablet 10 MG PO BID (Reported) Ubidecarenone (Co Q-10) 100 Mg Capsule 100 MG PO DAILY (Reported) Venlafaxine ER (Venlafaxine ER) 75 Mg Cap.er.24h 75 MG PO DAILY (Reported) Miscellaneous Medications Calcium Carbonate/Mag Oxide/Zn (Brwvxiz-Egentsyto-Kqcy Tablet) 1 Each Tablet 1 EACH PO (Reported) Loratadine (Loratadine) 10 Mg Capsule 10 MG PO (Reported) Multivitamin (Multivitamins) 1 Each Capsule 1 EACH PO (Reported) [place]-3 Fatty Acids (Fish Oil) 500 Mg Capsule.dr 1 CAPSULE PO (Reported) Followup Plan Discharge Diet: Low fat, Low Sodium, Heart Healthy Discharge Activity: Limited until seen by PCP Patient Instructions You were hospitalized due to chest pain. EKG, cardiac enzymes and stress test negative for heart attack. Please follow-up with PCP in 1 week. Please come back to emergency room if you have any further chest pain. Follow-up Provider: iSndi Matias Follow-up with PCP in: 1 week copies to: Sindi Matias Melaku MD Dec 19, 2016 16:09
--- NOTE | 2016-12-19 16:29 | DRSVH ---
[facility] [address] [place] [address] Echocardiogram Report Name: ALEJANDRA ANDERSON Date: 12/19/2016 Height: 62 in Hospital Exam Location: [facility] Weight: 168 lb Gender: Female BSA: 1.8 m2 : 1940 Age: 76 yrs BP: 174/73 mmHg Reason For Study: CHEST PAIN Ordering Physician: Arpan Peoples Performed By: Perez Madera Referring Physician: Sindi Matias Interpretation Summary The left ventricle is normal in size. Left ventricular systolic function is mildly reduced. The ejection fraction is estimated to be 45-50%. Septal motion is consistent with conduction abnormality. There is mild global hypokinesis of the left ventricle. LVEF has not changed since prior study. The right ventricle is normal in size and function. Pulmonary artery pressures cannot be estimated because of the lack of a measurable TR jet velocity. The left atrium is moderately dilated. Right atrial size is normal. There is no significant valvular heart disease. The aortic root is normal size. Procedure: A two-dimensional transthoracic echocardiogram with color flow and Doppler was performed. The study quality was technically good. Comparison is made with the echocardiogram of 10/23/14. The patient had a bundle branch block rhythm during the exam. Left Ventricle: The left ventricle is normal in size. There is normal left ventricular wall thickness. Left ventricular systolic function is mildly reduced. The ejection fraction is estimated to be 45-50%. Septal motion is consistent with conduction abnormality. There is mild global hypokinesis of the left ventricle. Right Ventricle: The right ventricle is normal in size and function. Atria: The left atrium is moderately dilated. Right atrial size is normal. The interatrial septum is intact with no evidence for an atrial septal defect. Mitral Valve: The mitral valve is normal in structure and function. There is trace mitral regurgitation. Aortic Valve: The aortic valve is normal in structure and function. The aortic valve is trileaflet. The aortic valve opens well. No aortic regurgitation is present. Tricuspid Valve: The tricuspid valve is normal in structure and function. No tricuspid regurgitation. Pulmonary artery pressures cannot be estimated because of the lack of a measurable TR jet velocity. Pulmonic Valve: The pulmonic valve is normal in structure and function. There is trace pulmonic regurgitation. There is no significant valvular heart disease. Great Vessels: The aortic root is normal size. The dimensions of the ascending aorta are normal. The pulmonary artery is normal size. The IVC is of normal diameter and collapses greater than 50% with a sniff. This suggests a low right atrial pressure of 3 mm Hg. Pericardium/ Pleura There is no pericardial effusion. There is no pleural effusion. MMode/2D Measurements & Calculations LVIDd: 5.2 cmLA dimension: 4.0 cm RA long axis: 5.0 cm Ao root diam LVIDs: 3.8 cm FS: 26.7 % LA A2 area: 22.2 cm RA area: 14.6 cm Aortic Jxn: 2.2 cm EPSS: 1.1 cm LA A4 area: 20.0 cm RA vol: 36.3 ml asc Aorta Diam IVSd: 0.92 cmLA length (vol) RA : 20.4 ml/m2 LVPWd Ao Arch Diam (Prox : 0.9cm LA vol: 74.3 ml Trans): 2.5 cm LA vol index IVC diam: 1.4 cm EDV(MOD-sp2) LV clarke. diameter/BSA LV sys. diameter/BSA (cm/m^2): 2.9 (cm/m^2): 2.2 ESV(MOD-sp2) EF(MOD-sp2) Doppler Measurements & Calculations Ao V2 max MV E max ricky MV E/A: 0.56 PA V2 max : 139.7 cm/sec : 49.5 cm/sec Med Peak E' Ricky : 92.0 cm/sec Ao max PG MV A max ricky PA mean PG : 7.8 mmHg : 89.1 cm/sec E/E' med: 15.0 Ao mean PG PA Accel Time : 4.5 mmHg : 0.07 sec MV dec time Ao V2 mean PA V2 mean : 0.33 sec : 100.7 cm/sec : 60.0 cm/sec Ao V2 VTI: 28.5 cm PA pr(Accel) : 46.6 mmHg Reading Physician:HAILY
--- NOTE | 2016-12-19 16:40 | NUR ---
discharged home with family. Will have f/u appt with PCP in 2 weeks. Pt having no symptoms at all. ambulatory, eating/drinking well
== END 2016-12-19 16:30 | disposition home or self-care (01) ==
LOC: SED 14:44 → OSC 17:18
PROVIDERS: ADMIT Internal Medicine; ATTEND Internal Medicine
DX: R07.9 Chest pain, unspecified (principal); I25.10 Atherosclerotic heart disease of native coronary artery without angina pectoris; I10 Essential (primary) hypertension; I50.22 Chronic systolic (congestive) heart failure; F01.50 Vascular dementia, unspecified severity, without behavioral disturbance, psychotic disturbance, mood disturbance, and anxiety; E78.5 Hyperlipidemia, unspecified; I44.7 Left bundle-branch block, unspecified; F41.8 Other specified anxiety disorders; J98.4 Other disorders of lung; M79.7 Fibromyalgia; J45.909 Unspecified asthma, uncomplicated; Z95.5 Presence of coronary angioplasty implant and graft; Z88.8 Allergy status to other drugs, medicaments and biological substances; Z87.440 Personal history of urinary (tract) infections; Z77.090 Contact with and (suspected) exposure to asbestos; Z79.82 Long term (current) use of aspirin; Z66 Do not resuscitate
CPT/HCPCS: 36415; 71010; 78452; 80048; 80053; 80061; 81000; 82550; 82553; 82948; 83036; 83735; 84443; 84484; 85025; 87086; 87088; 93005; 93017; 96365; 96366; 99285; A9502; C8929; G0378; J0280; J0696; J1644; J2785; J7030